=== PATIENT | male | born 1980 | race Caucasian/White ===

== ENCOUNTER 2018-08-18 13:30 | Emergency (ER) | payer OTHER ==
[2018-08-18] MEDS ORDERED: KETOROLAC 30 MG INJ IM (16:21)
== END 2018-08-18 16:32 | disposition left against medical advice (07) ==
LOC: FTE 13:30
DX: M54.9 Dorsalgia, unspecified (principal); Z72.89 Other problems related to lifestyle
CPT/HCPCS: 99282